=== PATIENT | female | born 1980 | race Two or more races ===

== ENCOUNTER → 2016-12-22 | Outpatient (CLI) | payer OTHER ==
--- NOTE | ~2016-12-22 | US98 ---
[facility] A Service of [facility] / [facility] RADIOLOGY TEXT RESULTS PATIENT: VIOLETA LOCK LOCATION: [facility] : [birth year] UNIT #: [id number] AGE: [address]: Saniya Moore SEX: F ORDER DR: [id number] [facility] [address] [place], [place] [address] [id number] O MR#: [id number] Acc #: [id number] NAME: VIOLETA LOCK : 1980 SEX: F STUDY DATE/TIME: 12/22/2016 15:54 UNIT: [facility] ROOM: STUDY DESCRIPTION: US Pelvic Non-OB Complete Attending Physician: Saniya Moore A.P.R.N. Referring Physician: Saniya Moore A.P.R.N. Ordering Physician: Saniya Moore A.P.R.N. Primary Care Physician: Saniya Moore A.P.R.N. MEDICAL IMAGING REPORT This report is preliminary unless electronic signature is present EXAM Pelvic ultrasound. INDICATIONS Right lower quadrant abdominal and pelvic pain with painful menstruation for the past 3 years. PROCEDURE Navas-scale and Doppler imaging of the pelvis via transabdominal and transvaginal approach. COMPARISON None. FINDINGS Uterus is anteverted and measures 15.7 x 6.7 x 11.1 cm. Endometrium is not well seen, but appears to be approximately 6 mm in thickness. The uterus is diffusely heterogeneous. There is a fibroid toward the fundus that measures up to 5.3 cm. Left ovary measures 2.3 x 2 x 2.2 cm and is unremarkable. The right ovary is not well seen. IMPRESSION 1. Enlarged heterogeneous uterus with fibroids. Indexed fibroid provided above. 2. Endometrium is not well seen on this study, probably distorted by the fibroids. Measures approximately 6 mm. 3. Left ovary unremarkable. Right ovary not clearly seen on the study. Dictated by... Amadou Galicia M.D. [facility] A Service of [facility] / [facility] RADIOLOGY TEXT RESULTS PATIENT: VIOLETA LOCK LOCATION: [facility] #: [id number] : [birth year] UNIT #: [id number] AGE: [address]: Saniya Moore SEX: F ORDER DR: THIS IS AN ELECTRONICALLY VERIFIED REPORT Amadou Galicia M.D. at 12/24/2016 3:28 PM SHANTA/saida TD: 12/23/2016 08:44 JOB #: [id number] MEDICAL IMAGING REPORT Page 1 of 1 COPY
== END | disposition home or self-care (01) ==
LOC: CWCC 15:43
DX: R19.09 Other intra-abdominal and pelvic swelling, mass and lump (principal); D25.9 Leiomyoma of uterus, unspecified
CPT/HCPCS: 76830; 76856